=== PATIENT | female | born 1985 | race Caucasian/White ===

== ENCOUNTER 2017-08-22 17:07 | Emergency (ER) | payer MEDICAID ==
[2017-08-22 17:39] VITALS: BP 122/88
--- NOTE | 2017-08-22 18:03 | EDM.PDOC ---
ED HPI GENERAL MEDICAL PROBLEM - General Chief Complaint: Genitourinary Problem Stated Complaint: ILLNESS Time Seen by Provider: 08/22/17 17:35 Source of Information: Reports: Patient History Limitations: Reports: No Limitations - History of Present Illness INITIAL COMMENTS - FREE TEXT/NARRATIVE: 32-year-old female with rectal pain due to hemorrhoids. She has recurring flares this one has been bothering her for the last 2-3 days. She has a chronic history of drug-seeking with several emergency room visits and different clinics , she is restricted to the [facility]. She says however she just moved to the area. She is asking for a prescription for tramadol. She just had 42 filled 4 days ago in [place] she did not mention that until I asked her. Severity: Mild Associated Symptoms: Reports: No Other Symptoms - Related Data Allergies Allergy/AdvReac Type Severity Reaction Status Date / Time amoxicillin Allergy Swelling Verified 08/22/17 17:29 clindamycin Allergy Anaphylactic Verified 08/22/17 17:29 Shock ketoprofen Allergy Swelling Verified 08/22/17 17:29 ketorolac tromethamine Allergy Nausea and Verified 08/22/17 17:29 [From Toradol] Vomiting metronidazole [From Flagyl] Allergy Swelling Verified 08/22/17 17:29 NSAIDS (Non-Steroidal Allergy Nausea and Verified 08/22/17 17:29 Anti-Inflamma Vomiting promethazine HCl Allergy Abdominal Verified 08/22/17 17:29 [From Phenergan] Pain Home Meds: Home Meds Acetaminophen [Tylenol Arthritis Pain] 2 tab Q4H 06/14/17 [History] Past Medical History Cardiovascular History: Reports: Other (See Below) Other Cardiovascular History: States she has a history of lymphedema. Respiratory History: Reports: Pneumonia, Recurrent Gastrointestinal History: Reports: Irritable Bowel Syndrome Other Gastrointestinal History: States she has a history of elevated AST levels. Genitourinary History: Reports: Pyelonephritis, Renal Disease, UTI, Recurrent, Other (See Below) Other Genitourinary History: States she has a history of kidney infections. [employer] History: Reports: , Other (See Below) Other OB/BYN History: , has had both tubes removed in past. 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 Hx lower lumbar lordosis, bulging discs S1-S2. Hx fx L ankle fx, fx L fibula, fx L tibia, fx R& L ribs, fx collarbone R, fx 3rd & 4th L finger. Neurological History: Reports: Concussion, Migraines Psychiatric History: Reports: Anxiety Endocrine/Metabolic History: Reports: Obesity/BMI 30+ Dermatologic History: Reports: Cellulitis, Eczema - Infectious Disease History Infectious Disease History: Reports: Chicken Pox, MRSA, Scarlet Fever, Other ( See Below) Other Infectious Disease History: MRSA groin - Past Surgical History HEENT Surgical History: Reports: Oral Surgery, Tonsillectomy, Other (See Below) GI Surgical History: Reports: Cholecystectomy Female Surgical History: Reports: Tubal Ligation, Other (See Below) Other Female Surgeries/Procedures: Has had hx tubal , has had both tubes removed. Musculoskeletal Surgical History: Reports: Arthroscopic Knee, Other (See Below) Other Musculoskeletal Surgeries/Procedures:: Lateral release bilat knees/scopes , L knee scope Social & Family History - Family History Family Medical History: Noncontributory - Tobacco Use Smoking Status *Q: Current Every Day Smoker Years of Tobacco use: 16 Packs/Tins Daily: 0.2 Used Tobacco, but Quit: No Second Hand Smoke Exposure: Yes - Caffeine Use Caffeine Use: Reports: Coffee, Soda Caffeine Use Comment: 1.5 poys a day, 2-3 sodas - Recreational Drug Use Recreational Drug Use: No Drug Use in Last 12 Months: No Recreational Drug Type: Reports: Marijuana/Hashish ED ROS GENERAL - Review of Systems Review Of Systems: See Below Constitutional: Denies: Fever Respiratory: Denies: Shortness of Breath GI/Abdominal: Denies: Abdominal Pain Skin: Reports: No Symptoms Neurological: Denies: Headache ED EXAM, GENERAL - Physical Exam Exam: See Below Exam Limited By: No Limitations General Appearance: Alert, No Apparent Distress Respiratory/Chest: No Respiratory Distress, Lungs Clear Rectal (Female) Exam: Other (Exam is otherwise limited to the perirectal area. The patient does have some small somewhat irritated and mildly thrombosed hemorrhoids, not large and partially internal.) Course - Vital Signs Last Recorded V/S: Last Vital Signs Temp 97.4 F 08/22/17 17:45 Pulse 108 H 08/22/17 17:45 Resp 12 08/22/17 17:45 BP 122/88 08/22/17 17:45 Pulse Ox 97 08/22/17 17:45 - Re-Assessments/Exams Free Text/Narrative Re-Assessment/Exam: 08/22/17 18:01 Give her prescription for Anusol HC suppositories to use twice daily for the next several days along with warm baths. She should recheck at the clinic early next week if they are persistent. She again asked for tramadol because her tramadol is "in [place]". This was declined. Departure - Departure Time of Disposition: 18:21 Disposition: Home, Self-Care 01 Condition: Good Clinical Impression: Hemorrhoids Qualifiers: Hemorrhoid type: perianal venous thrombosis Qualified Code(s): K64.5 - Perianal venous thrombosis - Discharge Information Instructions: Hemorrhoids, [id number] Referrals: PCP,None [Primary Care Provider] - Forms: ED Department Discharge Care Plan Goals: Use warm baths, and the suppositories as directed to calm down the inflammation. Continue his stool softeners and recheck at the clinic next week if not improving.
== END 2017-08-22 18:21 | disposition home or self-care (01) ==
LOC: JP.ED 17:07
DX: K64.5 Perianal venous thrombosis (principal); F17.210 Nicotine dependence, cigarettes, uncomplicated; Z88.1 Allergy status to other antibiotic agents; Z88.6 Allergy status to analgesic agent; Z88.8 Allergy status to other drugs, medicaments and biological substances
CPT/HCPCS: 99283